=== PATIENT | female | born 1990 | race Caucasian/White ===

== ENCOUNTER 2021-07-08 19:41 | Emergency (ER) | payer OTHER, SELFPAY ==
[2021-07-08 19:44] VITALS: BP 153/94; PULSE 63; RESP 18; O2SAT 98
--- NOTE | 2021-07-08 19:44 | ED.GENADUL_ITS ---
Discharge Plan Disposition Patient Disposition: HOME Condition: Stable Discharge Details Clinical Impression: Fibula fracture Primary Care Provider: Unknown,Unknown ED Provider: Rocky Puri Home Meds and New Rx's Prescriptions: Continued sertraline 100 mg Tablet 200 mg PO HS RF: 0 epinephrine [EpiPen] 0.3 mg/0.3 mL Auto-Injector 0.3 mg IM PRN PRNRF: 0 Padmaja 14 mcg/24 hrs (3 yrs) 13.5 mg Intrauterine Device 1 device INTRAUTERINE ONCE RF: 0 Discharge Instructions Instructions: Ankle Fracture (ED) Additional Instructions: X-ray reveals a fibula fracture. He has been placed into a tall walking boot and crutches, no weightbearing until reevaluation with orthopedics. Take-home pack of Percocet given, take as directed, this may cause drowsiness and/or constipation. You may want to take [id number] stool softeners while taking this medication. You may also take [id number] Tylenol and/or Motrin as directed, be sure not to take more than 4 g of Tylenol in 1 given day, there is a component of Tylenol in the Percocet. Rest, elevate, cool compresses every 2 hours for 20 minutes. Please watch for new or worsening symptoms and return to the ER for any concerns. Please contact your primary care provider to obtain an orthopedic referral when you return home Saturday zeinab gómez. Medical Decision Making 30-year-old female presents having stepped off of a stair twisting her ankle on a rock. Clinically she has point tenderness over her lateral malleolus, concern for fracture, no obvious dislocation. Neuro, vascular, tendon intact. Patient is quite uncomfortable, will give 4 mg IM morphine X-ray read by me and confirmed by radiology as a distal fibula fracture Discussed x-ray findings with patient and family. Patient placed into a tall walking boot and crutches with teaching, to be nonweightbearing until r eevaluation with orthopedics. [place], plans to follow-up with primary care and orthopedics there on Saturday. Will provide patient with 800 p.o. Motrin, another dose of 4 mg IM morphine, and a take-home pack for Percocet. Standard discharge and return precautions provided. A CD with her imaging was also provided. Patient and family have no additional questions or concerns and are comfortable discharge peer Imaging Data Radiologic Study: Attestation: I personally reviewed and interpreted this imaging study as follows: Imaging: X-Ray Radiologist's impression: PROCEDURE INFORMATION: Exam: XR Left Ankle Exam date and time: 07/08/2021 7:52 PM Age: 30 years old Clinical indication: Ankle; Left; Patient HX: Fall/pain TECHNIQUE: Imaging protocol: XR Left ankle. Views: 3 or more views. COMPARISON: No relevant prior studies available. FINDINGS: Bones/joints: There is minimally displaced transverse fracture through the distal left fibula. Soft tissues: Mild soft tissue swelling laterally. There is a small calcific structure projecting over the lateral malleolus. It could represent an age indeterminate avulsion fragment. IMPRESSION: There is minimally displaced transverse fracture through the distal left fibula. Thank you for allowing us to participate in the care of your patient. HPI General Mode of arrival: wheelchair . Date/Time Provider Initiated Documentation: 07/08/21 19:44 . Limitations to Documentation: no limitations . Information obtained by: patient . HPI Narrative: This is a 30-year-old female, denies any significant past medical history, reports that she was walking down the stairs, when stepping onto the ground there was a rock causing her to twist her ankle and fall, this occurred about 45 minutes ago. Patient reports severe ankle pain, denies any other injury, numbness, tingling, weakness. She is unable to bear weight. She did not take any medication prior to arrival. No additional questions or concerns. Related Data Home Medications Medication Instructions Recorded Confirmed Padmaja 1 device INTRAUTERINE ONCE 07/08/21 07/08/21 epinephrine [EpiPen] 0.3 mg IM PRN PRN 07/08/21 07/08/21 sertraline 200 mg PO HS 07/08/21 07/08/21 Allergies Allergy/AdvReac Type Severity Reaction Status Date / Time bee venom protein (honey bee) Allergy Swelling/Ed Unverified 07/08/21 19:48 [email or web address] Review of Systems Constitutional Constitutional: Denies headache(s) and Denies weakness ENT Ears, Nose, Mouth, and Throat: Denies headache(s) Gastrointestinal Gastrointestinal: Reports nausea Musculoskeletal Musculoskeletal: Reports arthralgias, Denies numbness, Reports stiffness and Denies tingling Integumentary/Breasts Skin/Breast: Denies rash Neurologic Neurologic: Denies headache(s), Denies numbness, Denies tingling and Denies weakness [facility] Social History Smoking/Tobacco Use Status: Never Smoking risk assessment performed?: Yes Substance use type: does not use Do you feel safe at home: Yes Do you feel safe in your relationship?: Yes Exam Const General: cooperative, healthy appearing and other (Uncomfortable) Orientation: alert and awake [facility] Head: normal to inspection, normocephalic and atraumatic Eyes General: appearance normal, both eyes and all related structures Conjunctivae: conjunctivae normal Neck Neck: normal visual inspection, trachea midline and supple Resp Effort & Inspection: normal respiratory effort and able to speak in complete sentences Cardio Rate: regular rate Rhythm: regular rhythm Skin General skin exam: no rashes or lesions noted Neuro General: patient alert, patient awake, moves all extremities and no focal motor deficits Cognition: normal cognition Speech: speech normal Sensory Exam: no sensory deficits noted Extrem General: capillary refill normal Left lower extremity: normal capillary refill, hip/thigh Details: normal to inspection and normal ROM; no tenderness and no swelling, knee Details: normal to inspection and normal ROM; no tenderness and no swelling, lower leg Details: normal to inspection and no edema; no tenderness, ankle (Lateral malleolus tenderness, ecchymosis, point tenderness) and foot Details: normal capillary refill, normal to inspection and toes with normal ROM; no tenderness Other: Ankle with limited range of motion secondary discomfort. Skin is intact. No erythema or warmth. Neuro, vascular, tendon intact. Psych Appearance: grossly normal Mental Status: mental status grossly normal
--- NOTE | 2021-07-08 19:45 | DI.RAD_ITS ---
Exam(s) XR ANKLE LT COMPLETE EXAM: XR ANKLE LT COMPLETE CLINICAL HISTORY: fall/pain. TECHNIQUE: 2D digital imaging was performed. COMPARISON: No exams were available for comparison FINDINGS: There is soft tissue swelling laterally. There is a minimally displaced transverse fracture through the inferior aspect of the lateral malleolus. There is no widening of the mortise. Talar dome unrem arkable. Medial malleolus and posterior malleolus appear unremarkable. IMPRESSION: Transverse fracture lateral malleolus. Minimal displacement. DATA REPOSITORY: RADIATION DOSE DELIVERED:
[2021-07-08] MEDS: Ondansetron O.D.T. 4 MG TABEF (20:01)
[2021-07-08] MEDS: Ibuprofen 800 MG TAB PO (21:15)
--- NOTE | 2021-07-08 22:03 | DI.VRAD_ITS ---
PROCEDURE INFORMATION: Exam: XR Left Ankle Exam date and time: 07/08/2021 7:52 PM Age: 30 years old Clinical indication: Ankle; Left; Patient HX: Fall/pain TECHNIQUE: Imaging protocol: XR Left ankle. Views: 3 or more views. COMPARISON: No relevant prior studies available. FINDINGS: Bones/joints: There is minimally displaced transverse fracture through the distal left fibula. Soft tissues: Mild soft tissue swelling laterally. There is a small calcific structure projecting over the lateral malleolus. It could represent an age indeterminate avulsion fragment. IMPRESSION: There is minimally displaced transverse fracture through the distal left fibula. Dictated and Authenticated by: Steve Calixto MD. Ordering:JUAN Hidalgo MD
== END 2021-07-08 21:23 | disposition home or self-care (01) ==
PROVIDERS: Emergency Provider Physician Assistant
DX: S82.62XA Displaced fracture of lateral malleolus of left fibula, initial encounter for closed fracture (principal); X50.9XXA Other and unspecified overexertion or strenuous movements or postures, initial encounter
CPT/HCPCS: 27786; 96372; 99281; 73610